=== PATIENT | male | born 1995 | race Caucasian/White ===

== ENCOUNTER 2017-06-10 19:18 | Emergency (ER) | payer BC, OTHER ==
[~2017-06-10] VITALS: Ht 185.4 cm; Wt 125.8 kg
[~2017-06-10 19:18] MED LIST: ERGO1CAP35 PO
[2017-06-10 19:24] VITALS: TEMP 36.6; Ht 185.4 cm; Wt 125.8 kg
[2017-06-10] MEDS ORDERED: KETOROLAC TROMETHAMINE 30 MG/ML VIAL IV STA (19:39)
[2017-06-10 20:18] LABS: POINT OF CARE TROPONIN I < 0.030 ng/ml (0-0.045)
[2017-06-10 20:26] LABS: BASO % 0.5 %; BASO ABS # 0.04 K/uL (0-0.2); COMPLETE YES; EOS % 3.5 %; HEMATOCRIT 48.1 % (42-52); IG% 0.1 %; LYMPH % 29.7 %; LYMPH ABS # 2.32 K/uL (1.2-3.4); MEAN CORPUSCULAR HEMOGLOBIN 31.1 pg (25-34); MEAN CORPUSCULAR HGB CONC 35.8 g/dl (32-36); MEAN PLATELET VOLUME 9.9 fL (7.4-10.4); MONO % 8.8 %; NEUT % 57.4 %; PLATELET COUNT 300 K/uL (130-400); RED BLOOD COUNT 5.53 M/uL (4.7-6.1); WHITE BLOOD COUNT 7.81 K/uL (4.8-10.8)
--- NOTE | 2017-06-10 20:35 | EMERGENCY ROOM VISIT NOTE ---
History Report prepared by Sara: Sylvia Prakash Under the Supervision of: Dr. Pepe López M.D. 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 pt states he bent down and c/o sharp pain to left side of chest. pateint states pain lasted approximately 1 hour. pt states "i took tums and it went away." pt c/o chest pain this afternoon when he stands up. patient states he took tums right before coming to ER. History of Present Illness The patient is a 21 year old male who presents to the Emergency Room for a cardiac assessment. 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 The patient states that he was attaching a cement block to a garden tractor with a ratchet strap when he started to experience sharp chest pain yesterday. He states that he went inside and took Tums. He reports that an hour later the pain had gone away. He states that he went to [facility] and walked about 3 miles without repeat symptoms. The patient notes he went to bed that evening and assumed it was just his acid reflux. He states today he had it again. He reports that it is worse when he stands up and better with laying or sitting down. He describes it as intense and states it takes his breath away. He states that he has been gassy at both ends, but not had the normal acid taste in his mouth. The patient denies trauma, cough, fever, and hematochezia. The patient notes a history of iron deficiency and difficulty breathing when it is cold outside. Source of History: patient Onset: yesterday Position: chest Symptom Intensity: intense Quality: sharp Timing: other (episode) Modifying Factors (Worsening): breathing, other (standing) Modifying Factors (Relieving): other (sitting, laying down) Associated Symptoms: No fevers, No cough, No hematochezia Note: The patine complains of being gassy. The patient denies acid taste in his mouth and trauma. Review of Systems See HPI for pertinent positives & negatives. A total of 10 systems reviewed and were otherwise negative. Past Medical & Surgical Medical Problems: (1) Asthma (2) Bipolar disorder (3) Gastroesophageal reflux disease (4) Pre-diabetic (5) Pseudoseizures Old medical records were reviewed. Nurse's notes were reviewed and I agree with. He denies that he has any current psychiatric problems. Denies suicidal ideations Denies cardiac disease or diabetes History of asthma Family History Asthma Diabetes mellitus FHx: heart disease Hypertension Thyroid disease Social History Smoking Status: Never Smoker Alcohol Use: none Drug Use: none Marital Status: single Housing Status: lives with family Occupation Status: employed Current/Historical Medications Scheduled Tetrahydrozoline Hcl (Ophth) (Visine), 1 DROP OP UD Scheduled PRN Albuterol Sulfate (Proair Respiclick), 2 PUFFS INH UD PRN for Respiratory Illness Mometasone Furoate-Formoterol (Dulera 100/5 Mcg), 2 PUFFS INH BID PRN for Respiratory Illness Allergies Coded Allergies: Amphetamine (Unverified Allergy, Severe, PSYCHOSIS, 10/20/15) Dextroamphetamine (Unverified Allergy, Severe, PSYCHOSIS, 10/20/15) Buspirone (Verified Allergy, Unknown, psychotic reaction, 10/20/15) Fluoxetine (Verified Allergy, Unknown, psychotic reaction, 10/20/15) Metoclopramide (Verified Adverse Reaction, Severe, DYSTONIA, 10/20/15) PATIENT GETS AGGRESSIVE, COMBATIVE, AND SHAKY Prednisone (Verified Adverse Reaction, Severe, PSYCHOTIC REACTION, 10/20/15) Lorazepam (Unverified Adverse Reaction, Intermediate, IV lorazepam produced orthostasis, altered mental status, 10/20/15) Physical Exam Vital Signs Date Time Temp Pulse Resp B/P (MAP) Pulse Ox O2 Delivery O2 Flow Rate FiO2 06/10/17 21:11 76 18 125/74 96 06/10/17 19:28 96 Room Air 06/10/17 19:24 36.6 85 18 126/75 97 Room Air Physical Exam General: Well developed well nourished in no acute distress, breathing comfortably on room air. Normal speech. Non-ill appearing young male. HEENT: Normal cephalic atraumatic. Pupils are equal round and reactive to light. Extraocular movements are intact. Oropharynx is pink with moist mucous membranes. No swelling of the mouth lips or tongue. Neck: Supple with a midline trachea. No meningeal signs or stiffness, no JVD or bruits. No Stridor. Chest: Clear to auscultation bilaterally. No wheezes or rhonchi. No increased work of breathing. Reproducibly tender. Heart: regular rate and rhythm. Abdomen: Soft nontender, nondistended without rebound guarding or rigidity. Extremities: No cyanosis clubbing or edema. No calf tenderness or assymetry Spine/Back. Non tender to palpation. No CVA tenderness Skin: Good turgor without rashes. Neurologic exam: Cranial nerves two through 12 are intact. Motor and sensation are intact and symmetrical throughout. Medical Decision & Procedures ER Provider Diagnostic Interpretation: Radiology results as stated below per my review and radiologist interpretation: CHEST ONE VIEW PORTABLE HISTORY: 21 years-old Male CHEST PAIN COMPARISON: Portable chest radiograph 12/28/2013 TECHNIQUE: Portable upright AP view of the chest FINDINGS: Cardiac silhouette is upper limits of normal, likely accentuated by technique. There is no pneumothorax, pleural effusion or focal airspace consolidation. Patient obesity is noted. The bones appear to be grossly intact. IMPRESSION: No acute cardiopulmonary process. The above report was generated using voice recognition software. It may contain grammatical, syntax or spelling errors. Electronically signed by: Sami Nieto M.D. 06/10/2017 8:43 PM Dictated Date/Time: 06/10/2017 8:42 PM Chest x-ray per my interpretation reveals no pneumothorax, failure, or infiltrate. Laboratory Results 06/10/17 19:51 Red Blood Count 5.53, Mean Corpuscular Volume 87.0, Mean Corpuscular Hemoglobin 31.1, Mean Corpuscular Hemoglobin Concent 35.8, Mean Platelet Volume 9.9, Neutrophils (%) (Auto) 57.4, Lymphocytes (%) (Auto) 29.7, Monocytes (%) (Auto) 8.8, Eosinophils (%) (Auto) 3.5, Basophils (%) (Auto) 0.5, Neutrophils # (Auto) 4.48, Lymphocytes # (Auto) 2.32, Monocytes # (Auto) 0.69, Eosinophils # (Auto) 0.27, Basophils # (Auto) 0.04 06/10/17 19:51 Test 06/10/17 19:51 06/10/17 19:59 White Blood Count 7.81 K/uL (4.8-10.8) Red Blood Count 5.53 M/uL (4.7-6.1) Hemoglobin 17.2 g/dL (14.0-18.0) Hematocrit 48.1 % (42-52) Mean Corpuscular Volume 87.0 fL (80-100) Mean Corpuscular Hemoglobin 31.1 pg (25-34) Mean Corpuscular Hemoglobin Concent 35.8 g/dl (32-36) Platelet Count 300 K/uL (130-400) Mean Platelet Volume 9.9 fL (7.4-10.4) Neutrophils (%) (Auto) 57.4 % Lymphocytes (%) (Auto) 29.7 % Monocytes (%) (Auto) 8.8 % Eosinophils (%) (Auto) 3.5 % Basophils (%) (Auto) 0.5 % Neutrophils # (Auto) 4.48 K/uL (1.4-6.5) Lymphocytes # (Auto) 2.32 K/uL (1.2-3.4) Monocytes # (Auto) 0.69 K/uL (0.11-0.59) Eosinophils # (Auto) 0.27 K/uL (0-0.5) Basophils # (Auto) 0.04 K/uL (0-0.2) RDW Standard Deviation 42.8 fL (36.4-46.3) RDW Coefficient of Variation 13.4 % (11.5-14.5) Immature Granulocyte % (Auto) 0.1 % Immature Granulocyte # (Auto) 0.01 K/uL (0.00-0.02) Anion Gap 9.0 mmol/L (3-11) Est Creatinine Clear Calc Drug Dose 170.2 ml/min Estimated GFR () 130.6 Estimated GFR (Non- 112.7 BUN/Creatinine Ratio 10.9 (10-20) Calcium Level 9.2 mg/dl (8.5-10.1) Total Bilirubin 0.3 mg/dl (0.2-1) Direct Bilirubin < 0.1 mg/dl (0-0.2) Aspartate Amino Transf (AST/SGOT) 54 U/L (15-37) Alanine Aminotransferase (ALT/SGPT) 104 U/L (12-78) Alkaline Phosphatase 68 U/L (45-117) Total Protein 8.6 gm/dl (6.4-8.2) Albumin 4.1 gm/dl (3.4-5.0) Lipase 206 U/L (73-393) Thyroid Stimulating Hormone (TSH) 1.240 uIu/ml (0.300-4.500) Bedside D-Dimer 283 ng/mlFEU (0-450) Bedside Troponin I < 0.030 ng/ml (0-0.045) Laboratory studies as stated above per my review. Medications Administered Medications (Trade) Dose Ordered Sig/Joaquina Route Start Time Stop Time Status Last Admin Dose Admin Ketorolac Tromethamine (Toradol Inj) 30 mg NOW STAT IV 06/10/17 19:39 06/10/17 19:41 DC 06/10/17 20:04 30 MG ECG Indication: chest pain Rate (beats per minute): 79 Rhythm: normal sinus Findings: no acute ischemic change, no ectopy Comparison ECG Date: 12/28/2013 Change: Rate has decreased. ED Course 1931: Past medical records reviewed. The patient was evaluated in room A10, and a complete history and physical examination were performed. 1938: Ordered Toradol Inj 30 mg IV. 2054: Upon reevaluation, the patient is resting comfortably. I discussed the results and treatment plan with him. He verbalized agreement of the treatment plan. The patient was discharged home. Medical Decision Differential diagnoses include costochondritis, pneumothorax, PE, GERD, electrolyte abnormality, metabolic abnormality. This patient comes in as described above. He was placed in room A 10. He is here for treatment and evaluation of chest pain. It is reproducible upon palpation. He has had no trauma. He is well-appearing and appears in no distress. He has no shortness of breath. IV access was established. He was given Toradol 30 mg IV. His EKG does not suggest acute coronary syndrome or arrhythmia. He has no elevation of his troponin is symptoms are atypical for cardiac disease. The symptoms started yesterday. Chest x-ray does not suggest congestive heart failure pneumonia or pneumothorax. He has no acute electrode or metabolic abnormalities. I think this most likely is musculoskeletal. I will have him rest and use ibuprofen for pain, take with food and do not exceed the [id number] recommended dosages. It could also be GI related. He was encouraged problems doctor this week and return to ER if: increasing pain, worsening of symptoms, fever or chills, any new problems or concerns. The patient and his mother are happy the plan and he was discharged to home. Impression Primary Impression: Precordial chest pain Scribe Attestation The scribe's documentation has been prepared under my direction and personally reviewed by me in its entirety. I confirm that the note above accurately reflects all work, treatment, procedures, and medical decision making performed by me. Departure Information Dispostion Home / Self-Care Referrals Joseph Caceres D.OEliana (PCP) Forms IMPORTANT VISIT INFORMATION Patient Instructions My [facility] Additional Instructions Rest. Use ibuprofen a maximum 400 mg every 6 hours if needed for pain, take with food Return if: Increasing pain, worsening of symptoms, shortness of breath, fever or chills, any new problems or concerns Follow-up with your doctor this week for recheck
[2017-06-10 20:42] LABS: ALT/SGPT 104 U/L (12-78); BLOOD UREA NITROGEN 11 mg/dl (7-18); BUN/CREATININE RATIO 10.9 (10-20); CALCIUM 9.2 mg/dl (8.5-10.1); CARBON DIOXIDE 27 mmol/L (21-32); CHLORIDE 103 mmol/L (98-107); CREATININE 0.97 mg/dl (0.60-1.40); GLUCOSE 90 mg/dl (70-99); POTASSIUM 3.9 mmol/L (3.5-5.1); SODIUM 139 mmol/L (136-145)
--- NOTE | 2017-06-10 20:45 | DIAGNOSTIC IMAGING REPORT ---
CHEST ONE VIEW PORTABLE HISTORY: 21 years-old Male CHEST PAIN COMPARISON: Portable chest radiograph 12/28/2013 TECHNIQUE: Portable upright AP view of the chest FINDINGS: Cardiac silhouette is upper limits of normal, likely accentuated by technique. There is no pneumothorax, pleural effusion or focal airspace consolidation. Patient obesity is noted. The bones appear to be grossly intact. IMPRESSION: No acute cardiopulmonary process. The above report was generated using voice recognition software. It may contain grammatical, syntax or spelling errors. Electronically signed by: Sami Nieto M.D. 06/10/2017 8:43 PM Dictated Date/Time: 06/10/2017 8:42 PM
[2017-06-10] MEDS ORDERED: MOME100A INH (20:48)
[2017-06-10] MEDS ORDERED: ALBU18002 INH (20:48)
[2017-06-10] MEDS ORDERED: VSNOPS OP (20:48)
[2017-06-10 20:53] LABS: ALKALINE PHOSPHATASE 68 U/L (45-117); AST/SGOT 54 U/L (15-37)
[2017-06-10 21:11] VITALS: BP 125/74; PULSE 76; O2SAT 96
== END 2017-06-10 21:13 | disposition home or self-care (01) ==
LOC: C.EDB 19:19 → C.EDA 21:13
DX: R07.2 Precordial pain (principal); J45.909 Unspecified asthma, uncomplicated; F31.9 Bipolar disorder, unspecified; K21.9 Gastro-esophageal reflux disease without esophagitis; R73.03 Prediabetes; Z83.6 Family history of other diseases of the respiratory system; Z83.3 Family history of diabetes mellitus; Z82.49 Family history of ischemic heart disease and other diseases of the circulatory system

== ENCOUNTER → 2017-09-18 | Outpatient (CLI) | payer BC, OTHER ==
[~2017-09-18] MED LIST changes: +ALBU18002 INH; -ERGO1CAP35 PO; +MOME100A INH; +VSNOPS OP
== END | disposition home or self-care (01) ==
LOC: C.RDSM 10:29
PROVIDERS: ATTEND Family Medicine Sports Medicine
DX: M79.601 Pain in right arm (principal)

== ENCOUNTER 2017-12-01 14:31 | Emergency (ER) | payer OTHER ==
[~2017-12-01] VITALS: Ht 188 cm; Wt 126.1 kg
[2017-12-01 14:37] VITALS: TEMP 36.5; Ht 188 cm; Wt 126.1 kg
--- NOTE | 2017-12-01 15:19 | DIAGNOSTIC IMAGING REPORT ---
L KNEE 3 VIEWS CLINICAL HISTORY: Tibial tubercle pain and following injury. COMPARISON: None FINDINGS: Alignment of the left knee is anatomic. There is no acute fracture or joint effusion. The joint spaces are preserved. No osseous lesion is identified. IMPRESSION: No acute fracture or joint effusion of the left knee. Electronically signed by: Mello Matt M.D. 12/01/2017 3:18 PM Dictated Date/Time: 12/01/2017 3:16 PM
[2017-12-01 15:45] VITALS: BP 142/72; PULSE 83; O2SAT 95
--- NOTE | 2017-12-01 16:24 | EMERGENCY ROOM VISIT NOTE ---
ED Visit Note First contact with patient: 14:39 CHIEF COMPLAINT: Left Knee injury HISTORY OF PRESENT ILLNESS: This 22-year-old white male patient injured his left knee yesterday when he was attempting to get into a griffin at a [employer] restaurant and struck his anterior knee on the edge of the griffin. He had immediate onset of pain. He tried to walk it off at the mall and [employer] but the pain persists. He has been ambulatory with a limp. No prior history of significant knee injury. Denies any swelling or discoloration. His mother accompanies him today. He did take Motrin 400 mg last night without improvement. REVIEW OF SYSTEM: HEENT: No dizziness, visual problems, hearing loss, or tinnitus. There is no difficulty swallowing and no oral lesions are present. PULMONARY: No cough, shortness of breath, sputum production or hemoptysis. CARDIOVASCULAR: No chest pain, palpitations, shortness of breath or peripheral edema. GASTROINTESTINAL: No diarrhea, constipation, nausea, vomiting, or abdominal pain. GENITOURINARY: No dysuria, frequency, urgency or nocturia. NEUROLOGIC: No weakness, muscle tenderness, epilepsy or history of neurological problems. MUSCULOSKELETAL: No history of joint tenderness/swelling. No history of arthritis or arthralgias. SKIN: No rashes or lesions. PSYCHIATRIC: Positive history of depression and bipolar disorder. ENDOCRINE: No history of thyroid disorders, or abnormal hair growth. 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 Family history: Significant for diabetes, heart disease, hypertension, cancer, lung disease, gallbladder disease, kidney stones, and seizures. Parents are living. Current medications: Reviewed and filed in patient's chart. Allergies: Amphetamines, buspirone, dextroamphetamine, fluoxetine, lorazepam, metoclopramide, prednisone SOCIAL HISTORY: Patient lives at home with his mother. No tobacco use, no EtOH use. Employed. PHYSICAL EXAM: Vital Signs: Afebrile. Reviewed and filed in patient's chart. MENTAL STATUS: Alert, oriented, and cooperative. Skin: Warm and dry with good turgor. No rashes or lesions. No ecchymosis or erythema. The patient is not diaphoretic. No abrasions. KNEE: The left knee is tender to palpation over the tibial tubercle. No intra- articular effusion or external swelling. He has full flexion and extension. He does have reproducible pain with extension at about 30. There is no ligamentous instability. The patient walks with an antalgic gait. He is able to stand on the left leg but has significant pain in doing so. Neurologic: Gross sensation is intact across left leg by soft touch. EMERGENCY DEPARTMENT COURSE: X-ray does not show any fractures or fluid in the joint. This was read by radiology and reviewed by me. DIAGNOSIS: Left Knee contusion DISCHARGE INSTRUCTIONS: Patient was educated regarding today's findings. Conservative care measures were discussed. Likelihood of tibial tubercle contusion was discussed. This should heal on its own but may take several days to several weeks. Ibuprofen, 600 mg every 6 hours if needed for pain. Supplement with Tylenol every 6 hours as needed for breakthrough pain. Ice and elevation to the knee for the next 72 hours. Crutches were given and crutch instruction was reviewed. Weight-bear as tolerated. Discontinue crutch use when he is able to walk without a limp. Follow-up with his orthopedist if symptoms are not improving over the next several days. He was reassured that I do not suspect tendon rupture, ligament injury, or meniscal injury. Problem List Medical Problems: (1) Asthma Status: Chronic (2) Bipolar disorder Status: Chronic (3) Gastroesophageal reflux disease Status: Chronic (4) Pre-diabetic Status: Chronic (5) Pseudoseizures Status: Chronic Current/Historical Medications Scheduled PRN Albuterol Sulfate (Proair Respiclick), 2 PUFFS INH UD PRN for Respiratory Illness Mometasone Furoate-Formoterol (Dulera 100/5 Mcg), 2 PUFFS INH BID PRN for Respiratory Illness Allergies Coded Allergies: Amphetamine (Unverified Allergy, Severe, PSYCHOSIS, 12/01/17) Dextroamphetamine (Unverified Allergy, Severe, PSYCHOSIS, 12/01/17) Buspirone (Verified Allergy, Unknown, psychotic reaction, 12/01/17) Fluoxetine (Verified Allergy, Unknown, psychotic reaction, 12/01/17) Metoclopramide (Verified Adverse Reaction, Severe, DYSTONIA, 12/01/17) PATIENT GETS AGGRESSIVE, COMBATIVE, AND SHAKY Prednisone (Verified Adverse Reaction, Severe, PSYCHOTIC REACTION, 12/01/17 ) Lorazepam (Unverified Adverse Reaction, Intermediate, IV lorazepam produced orthostasis, altered mental status, 12/01/17) Vital Signs Date Time Temp Pulse Resp B/P (MAP) Pulse Ox O2 Delivery O2 Flow Rate FiO2 12/01/17 15:45 83 18 142/72 95 Room Air 12/01/17 14:37 36.5 89 20 141/71 97 Room Air Departure Information Referrals Joseph Caceres, D.O. (PCP) Patient Instructions My [facility]
== END 2017-12-01 15:46 | disposition home or self-care (01) ==
LOC: C.EDB 14:32 → C.EDD 15:46
DX: S80.02XA Contusion of left knee, initial encounter (principal); W22.09XA Striking against other stationary object, initial encounter; Y93.89 Activity, other specified; Y92.511 Restaurant or cafe as the place of occurrence of the external cause; J45.909 Unspecified asthma, uncomplicated; Z88.8 Allergy status to other drugs, medicaments and biological substances; Z83.3 Family history of diabetes mellitus; Z82.49 Family history of ischemic heart disease and other diseases of the circulatory system; Z82.0 Family history of epilepsy and other diseases of the nervous system

== ENCOUNTER 2018-02-24 15:12 | Emergency (ER) | payer OTHER ==
[~2018-02-24] VITALS: Ht 188 cm; Wt 126.0 kg
[~2018-02-24 15:12] MED LIST changes: -VSNOPS OP
[2018-02-24 15:13] VITALS: TEMP 36.4; Ht 188 cm; Wt 126.0 kg
[2018-02-24] MEDS ORDERED: IBUPROFEN 800 MG TAB PO STA (15:35)
--- NOTE | 2018-02-24 15:43 | EMERGENCY ROOM VISIT NOTE ---
ED Visit Note First contact with patient: 15:18 CHIEF COMPLAINT: Low back pain HISTORY OF PRESENT ILLNESS: This 22-year-old male patient presents to the emergency department, ambulatory, with his family, complaining of pain in the low back which began approximately 1 hour prior to arrival. The patient states he slipped on the wet, [place] stairs and fell 3-4 feet. He was evaluated by EMS on scene, and was told to come to the emergency department for pain management. The patient has not taken any medications for his pain. The patient notes the pain as stinging and a 4/10. The patient denies any loss of control of their bowel or bladder functions. There has been no leg numbness or weakness, and no change in sensation. No nausea or vomiting or abdominal pain. No chest pain or shortness of breath. The patient has not had prior back injuries. No dysuria or increased urinary frequency. No hematuria. REVIEW OF SYSTEMS: A 10 system review of systems was performed with positives and pertinent negatives listed in the history of present illness. All other systems were reviewed and are negative. ALLERGIES: Amphetamine, dextroamphetamine, Lorazepam, metoclopramide, prednisone , BuSpar, fluoxetine MEDICATIONS: Elizabet, Zyrtec, Dulera PMH: Asthma, prediabetes SOCIAL HISTORY: Patient lives locally with family. He denies drug, alcohol, tobacco use. He is not employed. PHYSICAL EXAM: VITALS: Vitals are noted on the nurse's note and reviewed by myself. Vital signs stable. GENERAL: This is an obese 22-year-old white male, in no acute distress, nondiaphoretic, well-developed well-nourished. SKIN: The skin was without rashes, erythema, edema, or bruising. Capillary refill less than 2 seconds. NECK: Supple without nuchal rigidity. No cervical spine tenderness. No paraspinous muscle tenderness. HEART: Regular rate and rhythm without murmurs gallops or rubs. LUNGS: Clear to auscultation bilaterally without wheezes, rales or rhonchi. ABDOMEN: Positive bowel sounds x 4. Normal tympanic percussion. Soft, nontender, without masses or organomegaly. Ocasio sign negative. MUSCULOSKELETAL: No muscle atrophy, erythema, or edema noted of the back. There is no tenderness over the lumbar spinous processes. There is severe tenderness over the paraspinous muscles on the right. There is no tenderness over the thoracic spine or paraspinous muscles. There are no muscle spasms present. The patient is slow to move around with maximum tenderness with position changes. Negative straight leg raise test. NEURO: Patient was alert and oriented to person place and time. Normal sensation to light and sharp touch. Deep tendon reflexes 2+ in the lower extremities. Dorsalis pedis pulse 2+ bilaterally. Strength 5/5 and equal in the bilateral lower extremities. RADIOLOGY: LUMBAR SPINE 5 VIEWS HISTORY: right low back pain COMPARISON: Lumbar spine 11/04/2012. FINDINGS: There is no fracture. No subluxation. Disc spaces are preserved. Partial/groove within the right femoral neck. IMPRESSION: No fracture or subluxation within the lumbar spine. Electronically signed by: Jessee Forrest M.D. 02/24/2018 4:40 PM Dictated Date/Time: 02/24/2018 4:36 PM EMERGENCY DEPARTMENT COURSE: This is a 22-year-old male patient presents the emergency department today complaining of back pain after fall and striking the corner of a stair. The patient's symptoms appear muscular in nature. X-ray was performed to rule out acute fracture or bony abnormality. This was reviewed by myself and radiologist and findings were discussed with the patient and his family at bedside. Urine dipstick was negative for blood, and I do not suspect urologic injury. I did discuss the importance of proper pain management outpatient with Tylenol and ibuprofen. The patient verbalized understanding. He was medicated here in the emergency department with 800 mg ibuprofen and noted improvement in his symptoms. Discharge instructions reviewed, patient was discharged home in good condition. I attest that I have personally reviewed the patient's current medication list. Patient was found to have normal blood pressure on screening and does not require follow-up. Etiologies such as lumbago, sciatica, cauda equina, epidural abscess, osteomyelitis, fracture, aortic disease, metastatic disease, infection, renal colic, gastrointestinal, as well as others were entertained. DIAGNOSIS: Lumbar contusion, fall The chart was completed utilizing [employer] voice recognition software. Grammatical errors, random word insertions, pronoun errors, and incomplete sentences are an occasional consequence of this system due to software limitations, ambient noise, and hardware issues. Any formal questions or concerns about the content, text, or information contained within the body of this dictation should be directly addressed to the provider for clarification. Problem List Medical Problems: (1) Asthma Status: Chronic (2) Bipolar disorder Status: Chronic (3) Gastroesophageal reflux disease Status: Chronic (4) Pre-diabetic Status: Chronic (5) Pseudoseizures Status: Chronic Current/Historical Medications Scheduled PRN Albuterol Sulfate (Proair Respiclick), 2 PUFFS INH UD PRN for Respiratory Illness Cyclobenzaprine Hcl (Flexeril), 5-10 MG PO TID PRN for Muscle Spasms Mometasone Furoate-Formoterol (Dulera 100/5 Mcg), 2 PUFFS INH BID PRN for Respiratory Illness Allergies Coded Allergies: Amphetamine (Unverified Allergy, Severe, PSYCHOSIS, 02/24/18) Dextroamphetamine (Unverified Allergy, Severe, PSYCHOSIS, 02/24/18) Buspirone (Verified Allergy, Unknown, psychotic reaction, 02/24/18) Fluoxetine (Verified Allergy, Unknown, psychotic reaction, 02/24/18) Metoclopramide (Verified Adverse Reaction, Severe, DYSTONIA, 02/24/18) PATIENT GETS AGGRESSIVE, COMBATIVE, AND SHAKY Prednisone (Verified Adverse Reaction, Severe, PSYCHOTIC REACTION, 02/24/18 ) Lorazepam (Unverified Adverse Reaction, Intermediate, IV lorazepam produced orthostasis, altered mental status, 02/24/18) Vital Signs Date Time Temp Pulse Resp B/P (MAP) Pulse Ox O2 Delivery O2 Flow Rate FiO2 02/24/18 17:04 81 16 132/82 95 02/24/18 15:13 36.4 89 18 151/94 98 Room Air Medications Administered Medications (Trade) Dose Ordered Sig/Joaquina Route Start Time Stop Time Status Last Admin Dose Admin Ibuprofen (Motrin Tab) 800 mg NOW STAT PO 02/24/18 15:35 02/24/18 15:37 DC 02/24/18 15:45 800 MG Departure Information Impression Primary Impression: Lumbar contusion Additional Impression: Fall Dispostion Home / Self-Care Condition GOOD Prescriptions Cyclobenzaprine Hcl (FLEXERIL) 5 Mg Tab 5-10 MG PO TID Y for Muscle Spasms, #15 TAB PRN Prov: Leesa Hart, PAElenaC 02/24/18 Referrals Joseph Caceres, D.O. (PCP) Patient Instructions ED Low Back Pain Injury, My [facility] Additional Instructions You have been treated in the Emergency Department for Back Pain. You have been prescribed Flexeril (cyclobenzaprine) 1-2 tabs orally, three times per day. Do NOT exceed 30 mg (6 tabs) per day. Take your first dose at bedtime as it can make you drowsy. Always take all medications as prescribed. For pain control, you can use the following [id number] medicines (if >12 yo): Ibuprofen(Motrin, Advil) may be used for fever or pain. Use 600mg every six hours as needed. Take with food. Avoid using more than 2400mg in a 24 hour period. Do not use 2400mg per day for more than three consecutive days without physician direction. Prolonged inappropriate use can lead to stomach upset or ulcers. (AND/OR) Acetaminophen(Tylenol) may be used for fever or pain. Use 1000mg every six hours as needed. Avoid using more than 3000mg in a 24 hour period. *Alternate these medications every 3-4 hours for increased pain control. If this is an acute injury, ice can be applied to the area of pain for the first 3 days to help decrease pain and inflammation. After the first 3 days, a heating pad can be used over the area for continued soothing relief. You should schedule a follow-up appointment in 2-3 days with your Primary Care Provider for further evaluation and treatment of your back pain. Return to the Emergency Department if your current symptoms worsen despite treatment course outlined above, or if you develop any of the following symptoms : intractable pain despite aforementioned treatment course, loss of control of your bowel or bladder, numbness or tingling in your groin, or development of a fever. Problem Qualifiers Primary Impression: Lumbar contusion Encounter type: initial encounter Qualified Codes: S30.0XXA - Contusion of lower back and pelvis, initial encounter Additional Impression: Fall Encounter type: initial encounter Qualified Codes: W19.XXXA - Unspecified fall, initial encounter
--- NOTE | 2018-02-24 16:41 | DIAGNOSTIC IMAGING REPORT ---
LUMBAR SPINE 5 VIEWS HISTORY: right low back pain COMPARISON: Lumbar spine 11/04/2012. FINDINGS: There is no fracture. No subluxation. Disc spaces are preserved. Partial/groove within the right femoral neck. IMPRESSION: No fracture or subluxation within the lumbar spine. Electronically signed by: Jessee Forrest M.D. 02/24/2018 4:40 PM Dictated Date/Time: 02/24/2018 4:36 PM
[2018-02-24] MEDS ORDERED: CYCL5TAB PO (16:56)
[2018-02-24 17:04] VITALS: BP 132/82; PULSE 81; O2SAT 95
== END 2018-02-24 17:04 | disposition home or self-care (01) ==
LOC: C.EDB 15:13 → C.EDD 17:04
DX: S30.0XXA Contusion of lower back and pelvis, initial encounter (principal); W10.9XXA Fall (on) (from) unspecified stairs and steps, initial encounter; J45.909 Unspecified asthma, uncomplicated; R73.03 Prediabetes; Z88.8 Allergy status to other drugs, medicaments and biological substances; Z79.899 Other long term (current) drug therapy

== ENCOUNTER → 2018-02-25 | Outpatient (CLI) | payer OTHER ==
[~2018-02-25] MED LIST changes: +CYCL5TAB PO
== END | disposition home or self-care (01) ==
LOC: C.RDSM 14:17
PROVIDERS: ATTEND Family Medicine Sports Medicine
DX: M25.551 Pain in right hip (principal)